=== PATIENT | male | born 1940 | race Caucasian/White ===

== ENCOUNTER 2017-02-25 13:33 | Observation (INO) | payer OTHER, BC ==
--- NOTE | 2017-02-25 13:38 | EDPHY ---
H & P HPI/ROS: CHIEF COMPLAINT: Allergic reaction HISTORY OF PRESENT ILLNESS: The patient is a 77 y/o male with a history of a traumatic brain injury SAH 2016 ) complaining of swollen lips and feeling like his throat is closing. For the past month he has had multiple similar reactions due to an unknown cause. However, today his reaction is much more severe. When the reaction initially began he had pain in his lips, but this has since gone away. However, he notices persistent lip swelling and tongue swelling, causing him to slur his speech. He does not feel short of breath but did feel as if his throat was swelling. He takes Aspirin, Lovastatin, and Nexium everyday. Denies history of CAD, shortness of breath, chest pain, or a skin rash. REVIEW OF SYSTEMS: A ten point review of systems was performed and is negative with the exception of the items mentioned in the HPI. Past medical history: Traumatic brain injury, subarachnoid hemorrhage 12/2015 Past surgical history: Denies Family history: Denies Social history: at bedside Lives in [place] [employer] Appearance: Alert. Blood pressure: 138/88 Vital signs reviewed. Room air pulse ox 93%. Eyes: Pupils equal and round, no conjunctival injection, no discharge. Anicteric. ENT, Mouth: Tongue and lip edema, no uvular edema, speech is thick due to edema , swallowing his secretions. No swelling of floor of mouth. Mucous membranes are moist. Neck: No lymphadenopathy, supple. Trachea midline. Respiratory: Lungs are clear to auscultation; no wheezes, rales, or rhonchi. No stridor. Cardiovascular: Regular rate and rhythm; no murmur, rub, or gallop. Gastrointestinal: Abdomen is soft and nontender, no masses or organomegaly, bowel sounds normal. Skin: Warm and dry, no rashes on exposed skin, normal color. Back: Nontender to palpation over the thoracolumbar spine. No CVAT. Extremities: No lower extremity edema, no calf tenderness or swelling. Neurological: Alert and oriented. Moving all four extremities easily and equally. Psychiatric: Normal affect. - Medical/Surgical History Hx Asthma: No Hx Chronic Respiratory Disease: No Hx Diabetes: No Hx Cardiac Disease: No Hx Renal Disease: No Hx Cirrhosis: No Hx Alcoholism: No Hx HIV/AIDS: No Hx Splenectomy or Spleen Trauma: No Other PMH: PMH: TBI - Social History Smoking Status: Never smoked Constitutional: Initial Vital Signs Temperature (C) 36.4 C 02/25/17 13:37 Heart Rate 76 02/25/17 13:37 Respiratory Rate 16 02/25/17 13:37 Blood Pressure 139/88 H 02/25/17 13:37 O2 Sat (%) 93 02/25/17 13:37 O2 Delivery Mode Room Air Allergies/Adverse Reactions: naproxen sodium [From Aleve] Allergy (Verified 01/01/16 20:17) Home Medications: Medication Instructions Recorded Esomeprazole Mag Trihydrate 40 mg PO DAILY 02/25/17 [Nexium] Lovastatin 40 mg PO HS 02/25/17 EPINEPHrine [Epipen 0.3 MG] 0.3 mg IM ONCE #2 syr 02/26/17 predniSONE 40 mg PO DAILY #6 tablet 02/26/17 Medical Decision Making ED Course/Re-evaluation: The patient is a 77 y/o male with a history of a traumatic brain injury presenting with tongue and lip edema of unknown etiology. His speech is thick due to the edema, but he is swallowing well and does not have uvular edema. Lungs are clear. He is not hypotensive. Patient was re-examined at 2:05 p.m.. He has received IM epinephrine, IV Benadryl, IV Solu-Medrol, IV Zantac, and albuterol nebulized treatment. Visibly , the edema seems to have subsided mildly. He continues with thickened speech. 1511: Reassessed patient, he still has oral edema and continues to have thickened speech. I also discussed the plan for admission; patient and his are comfortable with this plan. The etiology of his angioedema is unknown with hereditary angioedema, food or medication reaction being in the differential. 1545: Consulted with hospitalist service, Dr. Ashton accepts admission of this patient. Differential Diagnosis: I considered hereditary/idiopathic angioedema in this patient who has had recurrent oral swelling, worse over the past few months. There is no obvious food or other inciting agent but anaphylaxis, allergic reaction, and urticaria are all in the differential. - Data Points Medications Given: Discontinued Medications Albuterol (Proventil Neb) 3 ml IH EDNOW ONE Stop: 02/25/17 14:00 Last Admin: 02/25/17 14:00 Dose: 3 ml Cetirizine HCl (Zyrtec) 20 mg PO BID [facility] Stop: 08/24/17 20:59 Last Admin: 02/26/17 09:51 Dose: Not Given Diphenhydramine HCl (Benadryl Injection) 50 mg IVP EDNOW ONE Stop: 02/25/17 13:47 Last Admin: 02/25/17 13:50 Dose: 50 mg Enoxaparin Sodium (Lovenox) 40 mg SC DAILY SAGAR Stop: 08/25/17 08:59 Last Admin: 02/26/17 09:51 Dose: Not Given Epinephrine HCl (Epinephrine) 0.3 mg IM EDNOW ONE Stop: 02/25/17 13:47 Last Admin: 02/25/17 13:49 Dose: 0.3 mg Famotidine (Pepcid) 20 mg PO BID [facility] Stop: 08/25/17 09:29 Last Admin: 02/26/17 09:51 Dose: Not Given Sodium Chloride (Ns) 1,000 mls @ 0 mls/hr IV ONCE ONE PRN Reason: Wide Open Stop: 02/25/17 13:49 Last Admin: 02/25/17 13:50 Dose: 1,000 mls Famotidine/Sodium Chloride (Pepcid 20 Mg (Premix)) 50 mls @ 200 mls/hr IV Q12HRS [facility] Stop: 08/24/17 20:59 Last Admin: 02/26/17 09:52 Dose: Not Given Methylprednisolone Sodium Succinate (Solu-Medrol) 125 mg IVP EDNOW ONE Stop: 02/25/17 13:48 Last Admin: 02/25/17 13:49 Dose: 125 mg Prednisone (Prednisone) 40 mg PO DAILY [facility] Stop: 08/24/17 16:44 Last Admin: 02/26/17 13:13 Dose: 40 mg Ranitidine HCl (Zantac) 25 mg IVP EDNOW ONE Stop: 02/25/17 13:48 Last Admin: 02/25/17 13:49 Dose: 25 mg Departure - Departure Disposition: [facility] Acute Clinical Impression: Angio-edema Qualifiers: Encounter type: initial encounter Qualified Code(s): T78.3XXA - Angioneurotic edema, initial encounter Condition: Good Report Scribed for: Amanda Alvarado Report Scribed by: Wendy Babin Date of Report: 02/25/17 Time of Report: 14:11 Physician Review and Approval Statement: 02/25/17 13:38 Portions of this note were transcribed by the medical planner. I, Dr. Amanda Alvarado, personally performed the history, physical exam, and medical decision- making; and confirmed the accuracy of the information in the transcribed note.
[2017-02-25] MEDS ORDERED: methylPREDNISolone SOD SUCC 125 MG/2 ML VIAL IVP ONE (13:47)
[2017-02-25] MEDS ORDERED: RANITIDINE 50 MG/2 ML VIAL IVP ONE (13:47)
[2017-02-25] MEDS ORDERED: NS 1,000 ML IV ONE (13:48)
[2017-02-25] MEDS ORDERED: ALBUTEROL 3 ML DEYVIAL IH ONE (13:59)
[2017-02-25] MEDS ORDERED: RANITIDINE 50 MG/2 ML VIAL ONE (14:55)
[2017-02-25] MEDS ORDERED: methylPREDNISolone SOD SUCC 125 MG/2 ML VIAL ONE (14:55)
[2017-02-25] MEDS ORDERED: ALBUTEROL 3 ML DEYVIAL ONE (14:55)
[2017-02-25] MEDS ORDERED: ONDANSETRON DISINTEGRATING 4 MG TAB PO PRN (15:44)
[2017-02-25] MEDS ORDERED: ACETAMINOPHEN 325 MG TAB PO PRN (15:44)
[2017-02-25] MEDS ORDERED: ONDANSETRON 4 MG/2 ML VIAL IVP PRN (15:44)
[2017-02-25] MEDS ORDERED: NS 1,000 ML IV SCH (15:45)
--- NOTE | 2017-02-25 16:48 | PDGENHP ---
History and Physical - Chief Complaint Acute dysphonia - History of Present Illness Primary care provider: Dr. Derrek Kinney Primary neurologist: Dr. Ervin Rader Primary seed yeast operator: Dr. Urbina HPI: 77-year-old male presenting with acute dysphonia characterized as muffled , fixed speech with associated sensation of his throat closing, lips and tongue swelling, onset of symptoms at noon on the day of presentation. Duration has been persistent thereafter. The patient reports that his symptoms have been somewhat intermittent but of lesser severity over the past month, without any identifiable precipitant. They have been alleviated without any intervention. The day of this presentation, the patient ate cereal with half and half, coffee , apple crisp, and otherwise took his morning medications. Patient does believe that he has a dairy allergy, with symptoms of mild swelling and itching occasionally with dairy intake. That being said, the patient continues to consume dairy, and has not been pervasive his life. History Information - Allergies/Home Medication List Allergies/Adverse Reactions: naproxen sodium [From Aleve] Allergy (Verified 01/01/16 20:17) Home Medications: Cholecalciferol Vit D3 [Vitamin D3 (*)] 1,000 units PO DAILY 02/25/17 [Last Taken 02/25/17] Cyanocobalamin (Vitamin B-12) [B-12] 1,000 mcg PO DAILY 02/25/17 [Last Taken ] Esomeprazole Mag Trihydrate [Nexium] 40 mg PO DAILY 02/25/17 [Last Taken ] Herbals/Supplements -Info Only 1 ea PO DAILY 02/25/17 [Last Taken 02/25/17] Lovastatin 40 mg PO HS 02/25/17 [Last Taken 02/24/17] I have personally reviewed and updated: family history, medical history, social history, surgical history - Past Medical History Additional medical history: Field's esophagus diagnosed 1 year ago, 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 Subarachnoid hemorrhage in 2016 with residual symptoms including mild ataxia, (reviewed outside record including Lucy tilley reporting 22 sessions, patient w/ ongoing repositioning work) . BPPV - Surgical History Additional surgical history: EGD 1 year ago, no other head or neck surgeries - Family History Additional family history: No family history of angioedema, no family history of vague abdominal disorders - Social History Smoking Status: Never smoked Alcohol Use: None Drug Use: None Additional social history: Independent in ADLs Review of Systems Review of Systems: ROS: 10pt was reviewed & negative except for what was stated in HPI & below EENMT: Reports: mouth swelling, throat swelling, other (Dysphonia, thick speech) Physical Exam Physical Exam: Temp Pulse Resp BP Pulse Ox 37.0 C 90 25 H 126/78 H 92 02/25/17 16:11 02/25/17 16:11 02/25/17 16:11 02/25/17 16:11 02/25/17 16:11 Constitutional: no apparent distress, appears nourished, not in pain, uncomfortable Eyes: PERRL, anicteric sclera, EOMI Ears, Nose, Mouth, Throat: other (Edematous lips, very mildly edematous tongue, difficult to visualize tonsils, mild posterior pharynx edema but is tonsils are open) Cardiovascular: regular rate and rhythym, no murmur, rub, or gallop, No irregularly irregular, No tachycardia Respiratory: no respiratory distress, no rales or rhonchi, clear to auscultation , other (No upper airway stridor) Gastrointestinal: normoactive bowel sounds, soft, non-tender abdomen, no palpable masses Skin: no rashes or abrasions, No erythema Neurologic: AAOx3, sensation intact bilaterally, No weakness Psychiatric: interacting appropriately, not anxious, not encephalopathic, thought process linear Assessment & Plan Assessment: 77-year-old male presenting with acute angioedema Plan: 1. Angioedema. Acute, new problem this provider, further workup indicated. Potential precipitating causes include hypersensitivity to aspirin (allergic to naproxen with generalized edema as reaction) verses proton pump inhibitor verses dairy, less likely statin, less likely familial inherited disorder -most recent CT imaging from 02/26/2016 CT angiogram of the neck demonstrating mild atherosclerosis, no flow-limiting stenosis, no indication for further CT imaging at this time as he does not have evidence of airway compromise -check basic labs, C1 esterase deficiency, LEOLA -discussed with Dr. Amanda Alvarado, she reports to me that the patient has received epinephrine, Solu-Medrol, Benadryl, ranitidine, albuterol in the emergency department -given that this does appear to be true angioedema, will continue him on prednisone 40 and recommend 5 day taper -continue H2 rachel famotidine IV twice daily, adjust oral tomorrow -continue on antihistamine with high-dose cetirizine 20 mg twice daily, can be tapered to 10 mg twice daily and then once daily thereafter -no evidence of airway compromise, continue to monitor this high risk patient in the step-down unit -recommend outpatient f/u w/ Cafeteria Clerk 2. Field's esophagus. Patient chronically on PPI, can be a contributing cause of hypersensitivity reaction, recommend adjusting to H2 rachel -recommend ranitidine 150 twice daily at discharge outpatient follow-up with Gastroenterology provider Diet. Passed bedside swallow eval, regular diet, CARPET SEWER eval in a.m. for formal recommendations Prophylaxis. High risk patient, Lovenox 40 Code. Full Disposition. Anticipated discharge is , pending stabilization and reassessment of above.
[2017-02-25] MEDS: predniSONE 20 MG TAB PO SCH (16:49)
[2017-02-25 17:03] LABS: % IMMATURE GRANULYOCYTES 0.4 % (0.0-1.1); ABSOLUTE IMMATURE GRANULOCYTES 0.04 10^3/uL (0.00-0.10); ADD DIFF? NO; ADD MORPH? NO; ADD SCAN? NO; ATYPICAL LYMPHOCYTE FLAG 0 (0-99); FRAGMENT RBC FLAG 0 (0-99); HEMATOCRIT 45.6 % (40.0-51.0); HEMOGLOBIN 15.7 g/dL (13.7-17.5); LEFT SHIFT FLG 0 (0-99); LIPEMIA HEMOLYSIS FLAG 90 (0-99); MEAN CELL HEMOGLOBIN 29.8 pg (27.9-34.1); MEAN CELL HEMOGLOBIN CONCENTR. 34.4 g/dL (32.4-36.7); MEAN CELL VOLUME 86.7 fL (81.5-99.8); MEAN PLATELET VOLUME 9.5 fL (8.7-11.7); PLATELET CLUMPS FLAG 10 (0-99); PLATELET COUNT 217 10^3/uL (150-400); RED BLOOD CELL COUNT 5.26 10^6/uL (4.40-6.38); RED CELL DISTRIBUTION WIDTH 14.4 % (11.5-15.2)
[2017-02-25 17:21] LABS: ALANINE AMINOTRANSFERASE 43 IU/L (21-72); ALKALINE PHOSPHATASE 63 IU/L (38-126); ANION GAP 10 mEq/L (8-16); ASPARTATE AMINOTRANSFERASE 27 IU/L (17-59); BILIRUBIN,TOTAL 0.3 mg/dL (0.1-1.4); CALCIUM 9.2 mg/dL (8.5-10.4); CARBON DIOXIDE 19 mEq/l (22-31); CHLORIDE 109 mEq/L (97-110); GLOMERULAR FILTRATION RATE > 60; GLUCOSE 121 mg/dL (70-100); SODIUM 138 mEq/L (134-144); TOTAL PROTEIN 6.5 g/dL (6.3-8.2)
[2017-02-25] MEDS: FAMOTIDINE 20 MG/NACL 50 ML IV SCH (20:22)
[2017-02-25] MEDS: CETIRIZINE 10 MG TAB PO SCH (20:22)
[2017-02-26 04:51] LABS: ANION GAP 8 mEq/L (8-16); CALCIUM 8.7 mg/dL (8.5-10.4); CARBON DIOXIDE 21 mEq/l (22-31); CHLORIDE 111 mEq/L (97-110); CREATININE 0.9 mg/dL (0.7-1.3); GLOMERULAR FILTRATION RATE > 60; GLUCOSE 118 mg/dL (70-100); MAGNESIUM 1.7 mg/dL (1.6-2.3); POTASSIUM 4.2 mEq/L (3.5-5.2); SODIUM 140 mEq/L (134-144)
[2017-02-26 08:32] VITALS: BP 121/73; RESP 20; TEMP 97.8
[2017-02-26] MEDS ORDERED: ENOXAPARIN 40 MG/0.4 ML SYR SC SCH (09:00)
[2017-02-26] MEDS ORDERED: FAMOTIDINE 20 MG TAB PO SCH (09:30)
[2017-02-26] MEDS: predniSONE 20 MG TAB PO SCH ×2 (09:51→13:13)
[2017-02-26] MEDS: CETIRIZINE 10 MG TAB PO SCH (09:51)
[2017-02-26] MEDS: FAMOTIDINE 20 MG/NACL 50 ML IV SCH (09:52)
--- NOTE | 2017-02-26 11:38 | ASMTCMCOM ---
CM Note CM Note Notes: 77 year old male admitted for acute dysphonia. He ahs a hx of Field's esophagus, SAH and BPPV. patient to have a swallow eval before discharge. No discharge needs anticipated. Date Signed: 02/26/2017 11:37 AM Electronically Signed By:Lynne Hawley LCSW
[2017-02-26 12:57] VITALS: PULSE 82; O2SAT 94
--- NOTE | 2017-02-26 13:16 | HOSPPROG ---
Hospitalist Progress Note Assessment/Plan: 77 yo M w angioedema better home on steroids outpt allergy follow up epi pen, steroid taper, dairy elimination see dc summary Subjective: much better. no airway issues Objective: Vital Signs Temp Pulse Resp BP Pulse Ox 36.6 C 82 20 121/73 H 94 02/26/17 08:00 02/26/17 12:00 02/26/17 12:00 02/26/17 08:00 02/26/17 12:00 Laboratory Results 02/25/17 16:55 02/26/17 04:30 02/25/17 02/26/17 02/27/17 05:59 05:59 05:59 Intake Total 805 Balance 805 - Physical Exam Constitutional: no apparent distress, appears nourished Eyes: PERRL, anicteric sclera Ears, Nose, Mouth, Throat: moist mucous membranes, hearing normal Cardiovascular: regular rate and rhythym, no murmur, rub, or gallop Respiratory: no respiratory distress, no rales or rhonchi Gastrointestinal: normoactive bowel sounds, soft, non-tender abdomen Genitourinary: no bladder fullness, No boudreaux in urethra Skin: warm, normal color Musculoskeletal: full muscle strength Neurologic: AAOx3 ICD10 Worksheet Patient Problems: Problems Problem Status Onset Angio-edema Acute
--- NOTE | 2017-02-26 13:32 | GDS ---
[f rep st] DISCHARGE SUMMARY HOSPITAL COURSE: Please see admission history and physical by Dr. Ha Ashton. The patient presente d with lip swelling, mouth swelling and dysarthric speech concerning for angioedema. He had been hav ing more mild symptoms recently. There are no new medications. His only prescription medications ar e PPI which he has been about a year, as well as his statin. He takes evdo-twl-swrmisb B12 and vitam in D3 as well as probiotics. Otherwise no new medications or products in his life. He thinks that preeti wynn is getting some small reactions to dairy. He received the usual angioedema cocktail of H2 rachel, antihistamine, steroids with rapid improvement in symptoms. This morning his voice is at baseline. He is able to say words like stethoscope without difficulty. He is discharged home with 3 additiona l days of steroids without taper and an EpiPen, referral to Allergy and plan to discontinue on over-t he-counter medications and see an milk tester and eliminating dairy from his diet. /[id number]/MODL
--- NOTE | 2017-02-26 15:31 | ASDISCHSUM ---
Discharge Information Plan Status:Home with No Needs Medically Cleared to Leave:02/25/2017 Discharge Date:02/26/2017 02:01 PM CM D/C Disposition:Home, Routine, Self-Care ADT D/C Disposition:Home, Routine, Self-Care Projected Discharge Date:02/26/2017 04:00 PM Transportation at D/C:Family Discharge Delay Reason: Follow-Up Date:02/26/2017 04:00 PM Discharge Slot: Final Diagnosis:Hypersensitivity to aspirin Placement Information Patient Contact Information Contact Name:NAYA Relationship: Address:[address] City:[place] Alternate Phone: State/Zip Code:[place] [address] Email: Financial Information Financial Class: Primary Plan Desc:MEDICARE OUTPATIENT Primary Plan Number:[id number] Secondary Plan Desc: OUT OF STATE [facility] Secondary Plan Number:[id number] Assessment Information [facility] CM Progress Note CM Note CM Note Notes: 77 year old male admitted for acute dysphonia. He ahs a hx of Field's esophagus, SAH and BPPV. patient to have a swallow eval before discharge. No discharge needs anticipated. Date Signed: 02/26/2017 11:37 AM Electronically Signed By:Lynne Hawley LCSW Case Management Discharge Plan Note Case Management Discharge Discharge Order Complete? Answers: Yes Patient to Obtain Answers: via Family Medications Transportation Arranged Answers: Family/Friends Transport will Pick (Date 02/26/2017 04:00 AM & Time) RICARDOALA Complete Answers: No Notes: not needed Case Management Transport Answers: No Notes: Home with family Form Complete Faxed Final Orders Answers: No Notes: Going home Agency/Facility Transfer Answers: No Notes: Going home Report Printed & Faxed to Receiving Agency Family Notified Answers: Yes Discharge Comments Notes: Patient has been discharged. To follow up with Jack Euceda MD 3-5 days and Derrek Hernandez MD PCP. No other discharge needs. Date Signed: 02/26/2017 03:30 PM Electronically Signed By:Lynne Hawley LCSW Intervention Information
== END 2017-02-26 14:01 | disposition home or self-care (01) ==
LOC: F2N 16:10
PROVIDERS: ADMIT Internal Medicine; ATTEND Internal Medicine
DX: T78.3XXA Angioneurotic edema, initial encounter (principal); X58.XXXA Exposure to other specified factors, initial encounter; Z87.820 Personal history of traumatic brain injury; K22.70 Barrett's esophagus without dysplasia
CPT/HCPCS: 96361; 96372; 96374; 96375; 99285; G0378; J1200; J2780; J2930; 86161-90

== ENCOUNTER → 2017-12-05 | Outpatient (CLI) | payer OTHER, BC | LOC: BHFA 14:15 | PROVIDERS: ATTEND Internal Medicine Interventional Cardiology | DX: I25.10 Atherosclerotic heart disease of native coronary artery without angina pectoris (principal); E78.00 Pure hypercholesterolemia, unspecified ==

== ENCOUNTER 2018-06-28 17:05 | Observation (INO) | payer OTHER, BC ==
--- NOTE | 2018-06-28 18:19 | EDPHY ---
H & P Stated Complaint: amaurosis figox diagnosed by [facility], for precursor for stroke Time Seen by Provider: 06/28/18 18:08 HPI/ROS: CHIEF COMPLAINT: Transient blindness left eye HISTORY OF PRESENT ILLNESS: 78-year-old male presents with transient blindness in the left eye. 2 episodes of sudden onset blindness left eye, 1 lasting 30 sec and the other 15 sec. Only able to see a brownish color throughout his entire visual field. These episodes occurred 3-4 days ago. He saw his retinal specialist, who advised him to come to the ED for evaluation. Eye exam reportedly normal. He takes an aspirin daily. No speech changes, weakness or numbness. REVIEW OF SYSTEMS: complete 10 point ROS reviewed and is negative except for the noted elements in the HPI - Personal History Current Tetanus/Diphtheria Vaccine: Unsure Current Tetanus Diphtheria and Acellular Pertussis (TDAP): Unsure - Medical/Surgical History Hx Asthma: No Hx Chronic Respiratory Disease: No Hx Diabetes: No Hx Cardiac Disease: No Hx Renal Disease: No Hx Cirrhosis: No Hx Alcoholism: No Hx HIV/AIDS: No Hx Splenectomy or Spleen Trauma: No Other PMH: PMH: TBI - Social History Smoking Status: Never smoked Alcohol Use: Sober Drug Use: None - Physical Exam Exam: General Appearance: Alert, pleasant Eyes: Pupils equal and round, no conjunctival pallor or injection, EOMI ENT, Mouth: Mucous membranes moist Neck: Normal inspection Respiratory: Lungs are clear to auscultation Cardiovascular: Regular rate and rhythm, no murmur Gastrointestinal: Abdomen is soft and nontender Neurological: Alert, oriented x3, cranial nerves II through XII intact, motor 5 /5, sensory intact to light touch, normal gait Skin: Warm and dry Extremities: Normal inspection Psychiatric: Mood and affect normal Constitutional: Initial Vital Signs Temperature (C) 37 C 06/28/18 17:11 Heart Rate 73 06/28/18 17:11 Respiratory Rate 18 06/28/18 17:11 Blood Pressure 153/72 H 06/28/18 17:11 O2 Sat (%) 94 06/28/18 17:11 O2 Delivery Mode Room Air Allergies/Adverse Reactions: naproxen sodium [From Aleve] Allergy (Verified 01/01/16 20:17) Home Medications: Medication Instructions Recorded Esomeprazole Mag Trihydrate 40 mg PO DAILY 02/25/17 [Nexium] Aspirin EC [Aspirin EC 81 mg (*)] 81 mg PO DAILY 06/28/18 Lovastatin 20 mg PO DAILY 06/28/18 Medical Decision Making - Diagnostics Imaging Results: MRI brain: NAD Imaging: Discussed imaging studies w/ call or contact centre coach Radiologist ED Course/Re-evaluation: This pt presents with amaurosis fugax x 2, already took ASA 81mg today. EKG reveals NSR without ischemic changes. MRI brain reveals no evidence for CVA. Will admit for further TIA/CVA evaluation and neuro consultation. The hospitalist service was consulted for admission. Differential Diagnosis: includes though not limited to CVA, TIA, inflammatory disorder, dysrhythmia - Data Points Laboratory Results: Laboratory Results 06/28/18 18:35 06/28/18 18:35 Medications Given: Aspirin Buffered (Aspirin Ec) 81 mg PO DAILY21 [facility] Stop: 12/25/18 22:29 Last Admin: 06/28/18 22:47 Dose: 81 mg Clopidogrel Bisulfate (Plavix) 75 mg PO DAILY [facility] Stop: 12/26/18 10:44 Last Admin: 06/29/18 11:42 Dose: 75 mg Pantoprazole Sodium (Protonix) 40 mg PO DAILY [facility] Stop: 12/26/18 08:59 Last Admin: 06/29/18 10:39 Dose: Not Given Pravastatin Sodium (Pravachol) 20 mg PO DAILY [facility] Stop: 12/26/18 08:59 Last Admin: 06/29/18 10:40 Dose: 20 mg Discontinued Medications Sodium Chloride (Ns) 1,000 mls @ 0 mls/hr IV ONCALL ONE PRN Reason: TKO Stop: 06/29/18 10:58 Last Admin: 06/29/18 11:43 Dose: 1,000 mls Departure - Departure Disposition: [facility] Inpatient Acute Clinical Impression: Amaurosis fugax of left eye Condition: Fair
[2018-06-28 19:00] LABS: PLATELET COUNT 277 10^3/uL (150-400)
--- NOTE | 2018-06-28 21:50 | PDGENHP ---
History and Physical - Chief Complaint vision loss - History of Present Illness 78yo M with CAD (no prior intervention), HLD presents to ED at recommendation of ad compositor due to recent left eye vision loss. First episode occurred . Vision in left eye completely went black. It happened suddenly but was not like a curtain coming down over his eye. This lasted about 90 seconds and vision returned. Had similar episode on 06/22 except the vision in his left eye just went dark and fuzzy but didn't completely go away. This episode lasted about 30 seconds. He saw an flight operations engineer on 06/22 who was concerned and said he should see his home furnishings sales representative and set him up with the ophthalmology appointment today. He had a dilated retinal exam that was reportedly completely normal. He currently does not have any vision changes. He denies any prior history of TIA/ stroke or atrial arrhythmias. In the ED, he had a brain MRI that does not show any evidence of stroke. He is being admitted for further evaluation and management. Case discussed with ED physician Derrek Vang. History Information - Allergies/Home Medication List Allergies/Adverse Reactions: naproxen sodium [From Aleve] Allergy (Verified 01/01/16 20:17) Home Medications: Esomeprazole Mag Trihydrate [Nexium] 40 mg PO DAILY 02/25/17 [Last Taken ] Aspirin EC [Aspirin EC 81 mg (*)] 81 mg PO DAILY 06/28/18 [Last Taken 06/28/18] Lovastatin 20 mg PO DAILY 06/28/18 [Last Taken 06/28/18] I have personally reviewed and updated: family history, medical history, social history, surgical history - Past Medical History Additional medical history: Field's esophagus, severe concussion in 2016 (had some vision changes around this time but these resolved), CAD (no prior intervention, f/b Vinicius), HLD - Surgical History Additional surgical history: EGD - Family History Additional family history: No family history of CAD or CVA. - Social History Smoking Status: Never smoked Alcohol Use: Sober Drug Use: None Additional social history: Very active, play tennis several times a week for hours at a time. Review of Systems Review of Systems: ROS: 10pt was reviewed & negative except for what was stated in HPI & below Physical Exam Physical Exam: Temp Pulse Resp BP Pulse Ox 36.8 C 79 18 119/95 H 95 06/28/18 21:41 06/28/18 21:41 06/28/18 21:41 06/28/18 21:41 06/28/18 21:41 Constitutional: no apparent distress, appears nourished, not in pain Eyes: PERRL, anicteric sclera, EOMI Ears, Nose, Mouth, Throat: moist mucous membranes, hearing normal, ears appear normal, no oral mucosal ulcers Cardiovascular: regular rate and rhythym, no murmur, rub, or gallop, No edema Respiratory: no respiratory distress, no rales or rhonchi, clear to auscultation Gastrointestinal: normoactive bowel sounds, soft, non-tender abdomen, no palpable masses Genitourinary: no bladder fullness, no bladder tenderness Skin: warm, normal color, no rashes or abrasions, no fluctuance, no induration, No mottled Musculoskeletal: full muscle strength, no muscle tenderness, normal joint ROM, no joint effusions Neurologic: AAOx3, sensation intact bilaterally, CN II-XII Intact, other ( visual acuity normal), No weakness, No numbness, No pronator drift, No facial droop Psychiatric: interacting appropriately Lab Data & Imaging Review 06/28/18 18:35 06/28/18 18:35 WBC 6.59 10^3/uL (3.80-9.50) 06/28/18 18:35 RBC 4.99 10^6/uL (4.40-6.38) 06/28/18 18:35 Hgb 13.5 g/dL (13.7-17.5) L 06/28/18 18:35 Hct 43.1 % (40.0-51.0) 06/28/18 18:35 MCV 86.4 fL (81.5-99.8) 06/28/18 18:35 MCH 27.1 pg (27.9-34.1) L 06/28/18 18:35 MCHC 31.3 g/dL (32.4-36.7) L 06/28/18 18:35 RDW 15.8 % (11.5-15.2) H 06/28/18 18:35 Plt Count 277 10^3/uL (150-400) 06/28/18 18:35 MPV 9.8 fL (8.7-11.7) 06/28/18 18:35 Neut % (Auto) 83.3 % (39.3-74.2) H 06/28/18 18:35 Lymph % (Auto) 12.6 % (15.0-45.0) L 06/28/18 18:35 Jennings % (Auto) 3.6 % (4.5-13.0) L 06/28/18 18:35 Eos % (Auto) 0.0 % (0.6-7.6) L 06/28/18 18:35 Baso % (Auto) 0.2 % (0.3-1.7) L 06/28/18 18:35 Nucleat RBC Rel Count 0.0 % (0.0-0.2) 06/28/18 18:35 Absolute Neuts (auto) 5.49 10^3/uL (1.70-6.50) 06/28/18 18:35 Absolute Lymphs (auto) 0.83 10^3/uL (1.00-3.00) L 06/28/18 18:35 Absolute Monos (auto) 0.24 10^3/uL (0.30-0.80) L 06/28/18 18:35 Absolute Eos (auto) 0.00 10^3/uL (0.03-0.40) L 06/28/18 18:35 Absolute Basos (auto) 0.01 10^3/uL (0.02-0.10) L 06/28/18 18:35 Absolute Nucleated RBC 0.00 10^3/uL (0-0.01) 06/28/18 18:35 Immature Gran % 0.3 % (0.0-1.1) 06/28/18 18:35 Immature Gran # 0.02 10^3/uL (0.00-0.10) 06/28/18 18:35 Sodium 134 mEq/L (135-145) L 06/28/18 18:35 Potassium 4.7 mEq/L (3.5-5.2) 06/28/18 18:35 Chloride 103 mEq/L (97-110) 06/28/18 18:35 Carbon Dioxide 19 mEq/l (22-31) L 06/28/18 18:35 Anion Gap 12 mEq/L (6-14) 06/28/18 18:35 BUN 14 mg/dL (7-23) 06/28/18 18:35 Creatinine 0.9 mg/dL (0.7-1.3) 06/28/18 18:35 Estimated GFR > 60 06/28/18 18:35 Glucose 129 mg/dL (70-100) H 06/28/18 18:35 Calcium 9.2 mg/dL (8.5-10.4) 06/28/18 18:35 POC Troponin I 0.00 ng/mL (0.00-0.08) 06/28/18 18:51 Troponin I < 0.012 ng/mL (0.000-0.034) 06/28/18 18:35 Assessment & Plan Assessment: 78yo M with CAD (no prior intervention), HLD presents to ED at recommendation of ad compositor due to recent left eye vision loss. This has now resolved. Plan: #Acute monocular vision loss: Now resolved. MRI brain without CVA. Retinal exam reportedly normal. Suspect TIA given his vascular risk factors. TPA not indicated. - CTA head/neck normal - TTE ordered - Check lipid panel, keep on telemetry - PT/OT/GREEN BELT evaluation - Consult for neurology placed in [facility] - Will need escalation of anti-platelet therapy (on aspirin 81 prior to event ) - Consider outpatient cardiac event monitor (LINQ) if no arrhythmias detected here #CAD: On aspirin and statin. #Field's esophagus: Continue PPI. #H/o concussion VTE ppx: SCDs Code: full Diet: swallow eval then regular Dispo: Admit under observation
[2018-06-28] MEDS ORDERED: IOPAMIDOL (ISOVUE-370) 150 ML BTL IV ONE (21:59)
[2018-06-28] MEDS: ASPIRIN EC 81 MG TAB PO SCH (22:47)
--- NOTE | 2018-06-28 23:04 | CPEKG ---
Test Reason : OPEN Blood Pressure : / mmHG Vent. Rate : 069 BPM Atrial Rate : 069 BPM P-R Int : 134 ms QRS Dur : 089 ms QT Int : 426 ms P-R-T Axes : 008 -06 033 degrees QTc Int : 457 ms Sinus rhythm Confirmed by Cindy Benítez ([id number]) on 06/28/2018 11:04:15 PM Referred By: CINDY BENÍTEZ Confirmed By:Cindy Benítez
[2018-06-29 06:51] LABS: PLATELET COUNT 250 10^3/uL (150-400)
[2018-06-29] MEDS ORDERED: PRAVASTATIN SODIUM 20 MG TAB PO SCH (09:00)
[2018-06-29] MEDS: PANTOPRAZOLE SODIUM 40 MG TAB PO SCH (10:39)
[2018-06-29] MEDS: PRAVASTATIN SODIUM 10 MG TAB PO SCH (10:40)
--- NOTE | 2018-06-29 10:54 | HOSPPROG ---
Hospitalist Progress Note Assessment/Plan: 78 yo M w hyperlipidemia a/w transient monocular blindness, concerning for neurovascular event MRI, CTA of head and neck and telemetry all neg ldl at goal not hypertensive, does not have dm 1. add plavix 2. await echo 3. outpt heart monitor 4. consideration of TEE_ discussing w cardiology Subjective: case d/w ambar gonsalez, cardiology PA. sx resolved. no events on telemetry Objective: Vital Signs Temp Pulse Resp BP Pulse Ox 36.9 C 98 20 110/55 L 96 06/29/18 10:14 06/29/18 10:14 06/29/18 10:14 06/29/18 10:14 06/29/18 10:14 Laboratory Results 06/29/18 06:15 - Physical Exam Constitutional: no apparent distress, appears nourished Eyes: PERRL, anicteric sclera Ears, Nose, Mouth, Throat: moist mucous membranes, hearing normal Cardiovascular: regular rate and rhythym, no murmur, rub, or gallop Respiratory: no respiratory distress, no rales or rhonchi Gastrointestinal: normoactive bowel sounds, soft, non-tender abdomen Genitourinary: no bladder fullness, No boudreaux in urethra Skin: warm Musculoskeletal: full muscle strength Neurologic: AAOx3, sensation intact bilaterally, CN II-XII Intact, No weakness Psychiatric: interacting appropriately ICD10 Worksheet Patient Problems: Problems Problem Status Onset Angio-edema Acute
[2018-06-29] MEDS ORDERED: NS 1,000 ML IV ONE (10:57)
--- NOTE | 2018-06-29 11:03 | ECHO ---
[email or web address] [address] [address] Main: [phone] Echocardiography Examination Transthoracic Name: PAMELA APARICIO MR#: [id number] Study Date: 06/29/2018 Study Time: 09:50 AM Date of : 1940 Age: 78 year(s) Height: 170.2 cm (67 in.) Weight: 73.48 kg (162 lb.) BSA: 1.85 m2 Gender: Male Examination: Echo with Agitated Saline Contrast: Image Quality: Adequate Rhythm: Heart Rate: BP: 101 mmHg/50 mmHg Indication: Ischemic Stroke Procedure Staff Referring Physician: Loan Servicing Officer: Isabelle Fuentes [facility] Reading Physician: Jasmeet Wallace MD Requesting Provider: Ordering Physician: Luiz Aguilar Indication: Ischemic Stroke Measurements Chambers AV/MV Label Value Normal Value Label Value Normal Value EF lower range (%) 60 % AV PGmax 11 mmHg EF upper range (%) 65 % AV PGmean 6 mmHg IVSd, 2D 1.1 cm (0.6cm - 1.1cm) AV Vmax 1.67 m/s LVDd, 2D 4.4 cm (4.2cm - 5.9cm) CARLA (continuity eq. 2 cm2 LVDs, 2D 2.4 cm (2.1cm - 4cm) Vmax) LVEF, 2D 78 % (54% - 74%) CARLA D (continuity eq. 1.6 cm2 LVEF, BP 64 % (55% - 70%) VTI) LVOT PGmax 7 mmHg MV A Vmax 0.53 m/s LVOT PGmean 4 mmHg MV DT 225 ms LVOT Vmax 1.29 m/s (0.7m/s - 1.1m/s) MV E' lateral 0.15 m/s LVOT Vmean 0.9 m/s MV E' mean 0.12 m/s LVOTd 1.8 cm (1.9cm - 2.1cm) MV E' septal 0.09 m/s LVPWd, 2D 1 cm (0.6cm - 1cm) MV E Vmax 0.7 m/s RVDd, 2D 2.9 cm (1.9cm - 3.8cm) MV E/A 1.32 LA Volume, BP 44 ml (18ml - 58ml) MV E/E' lateral 4.6 LADs, 2D 3.3 cm (3cm - 4cm) MV E/E' mean 5.83 LAESV index, BP 23.8 ml/m2 MV E/E' septal 8.1 (0.45 - 1.25) RA Area 17.9 cm2 MV PHT 0.06 s Additional Vessels MV PHT 64 ms MVA PHT 3.4 cm2 Patient: PAMELA APARICIO Study Date: 06/29/2018 Page 1 of 3 09:50 AM Label Value Normal Value TV/PV AoAsc 3 cm Label Value Normal Value AoRoot, 2D 3 cm (1.4cm - 2.6cm) RA Pressure 5 mmHg RVSP 38 mmHg TR Pmax 33 mmHg TR Vmax 2.86 m/s PV PGmax 9 mmHg PV Vmax, Caliper 1.53 m/s (0.6m/s - 0.9m/s) Conclusions Left Ventricle: EF range is estimated at 60 % - 65 %. IAS: An agitated saline study was performed and was negative for intracardiac shunting. Aortic Valve: Aortic leaflets exhibit moderate calcification. Tricuspid Valve: Mild tricuspid regurgitation. Right Ventricular systolic pressure is measured at 38 mmHg. Findings Left Ventricle: Left ventricle is normal in size. Normal global systolic left ventricular function. The ejection fraction, measured by Simpsons method, is 64 %. EF range is estimated at 60 % - 65 %. There are no regional wall motion abnormalities. Left ventricular diastolic function parameters are normal. No LV hypertrophy. Right Ventricle: Normal size right ventricle. Right ventricular systolic function is normal. Left Atrium: The left atrium is normal in size. IAS: An agitated saline study was performed and was negative for intracardiac shunting. Mitral Valve: Mitral valve appears structurally normal. Mild mitral regurgitation. No mitral valve stenosis. Aortic Valve: No significant aortic valve regurgitation. There is no aortic stenosis. Aortic leaflets exhibit moderate calcification. Tricuspid Valve: Tricuspid valve leaflets are structurally normal. Mild tricuspid regurgitation. No tricuspid valve stenosis. Right Ventricular systolic pressure is measured at 38 mmHg. Pulmonary artery pressure slightly increased. Pulmonic Valve: Pulmonic leaflets are structurally normal. Trivial pulmonic valve regurgitation is present. Aorta: The aortic root size in 2D measures 3.0 cm. The ascending aorta measures 3.0 cm. Aorta Measurements AoRoot, 2D is 3.0 cm. Exam Details Procedure Ordered: Echo with Agitated Saline Procedure Status: Routine study Patient: PAMELA APARICIO Study Date: 06/29/2018 Page 2 of 3 09:50 AM Image Quality: Adequate Facility Location: Cardiac Echo 1 (No Signature Object) Patient: PAMELA APARICIO Study Date: 06/29/2018 Page 3 of 3 09:50 AM [id number]
--- NOTE | 2018-06-29 11:10 | NEUROPROG ---
Assessment: [id number] - Neurology Consult: - CC: Vision Loss - HPI: 06/29/18: Pt had two episodes of transient left eye vision loss that occurred on 06/21/18 and again on 06/22/18. Both episodes lasted 30-90 seconds. He saw an opthamologist who examined his eyes and did not find any problems. Pt was told to come to the hospital for admission for stroke evaluation so was admitted on . Brain MRI wo and head/neck CTA both normal. LDL 63L. Pt had been on an aspirin 81 mg qd prior to events. His neurologic exam was normal. Symptoms concerning for possible embolism to ophthalmologic artery so will recommend changing aspirin 81 mg qd to plavix 75 mg qd. Will recommend LINQ monitor for any paroxysmal afib. Pt can f/u in neurology clinic 1-4 weeks after hospital discharge. - PMHx: Barrets esophagus, concussion, CAD, HLD - SHx: no tobacco FHx: no CAD/CVA - ROS: Pt denied acute fever, total vision loss, active severe chest pain, respiratory failure, total body severe rash, total bowel/bladder incontinence, psychosis, active seizures, or active bleeding - O: VS reviewed General: Alert Eyes: Fundoscopic exam not able to visualize optic disks CV: Heart RRR, no murmur, no carotid bruit Lungs: Clear to auscultation bilaterally, no rhonchi or rales Neuro: - Mental: . Oriented x person/place/date . concentration appears normal . speech fluency/comprehension normal . memory appears normal . fund of knowledge appear intact - Cranial Nerves: . II: PERRL, VFFTC . III/IV/: EOMI, no nystagmus, normal smooth pursuits, no Ptosis . V: facial sensation intact to LT . VII: face symmetric to eye closure and smile . VIII: hearing intact to conversation . IX/X: uvula raises symmetrically . XI: SCM 5/5 B/L strength . XII: tongue protrudes midline w/nl strength - Motor: . Tone: normal tone in all 4 extremity . Strength: no pronator drift, strength 5/5 throughout (B/L delt, bic, tri, hand automation specialist, hf/he, df/pf) - Reflexes: B/L bic/BR/patella 2/4 - Sensory: all 4 extremity intact to light touch - Coord: mtzcus-uq-ttiz wnl, SID wnl, bcfv-in-avqm wnl - Gait: deferred - Labs: 06/29/18- CBC Hct 37.6L, LDL 63L - Rads: 06/28/18- Head/neck CTA: no significant vessel abnl, no hemodynamically significant carotid stenosis 06/28/18- Brain MRI wo: normal (I personally visualized the images on 06/29/18) 06/28/18- TTE: no cardiac thrombus noted - Assessment: 1. Transient left eye vision loss on 06/21/18 and 06/22/18: Concern for possible embolism to ophthalmologic artery versus cryptogenic cause or possibly migraine variant. Saw optho in June 2018 and no cause found. - Plan: - Change aspirin to plavix 75 mg qd for stroke prevention (events occurred on aspirin) - Continue home dose of statin - I recommend LINQ monitor - F/U in neurology clinic in 1-4 weeks after discharge - Work with PCM to ensure blood pressure < 140/90, H1AC < 7.0, and LDL < 70 (63) Objective: Vital Signs Temp Pulse Resp BP Pulse Ox 36.9 C 98 20 110/55 L 96 06/29/18 10:14 06/29/18 10:14 06/29/18 10:14 06/29/18 10:14 06/29/18 10:14 Laboratory Results 06/29/18 06:15 Allergies/Adverse Reactions: naproxen sodium [From Aleve] Allergy (Verified 01/01/16 20:17)
[2018-06-29] MEDS: CLOPIDOGREL BISULFATE 75 MG TAB PO SCH (11:42)
--- NOTE | 2018-06-29 15:54 | PDHPUP ---
History & Physical Update H&P update statement: This history and physical update is based on an assessment of the patient which was completed after admission or registration (within 24 hours), but prior to the surgery/procedure. H&P update: H&P reviewed & patient examined, no change in patient's condition since H&P completed (okay, consented and agrees with TAL with IV sedation.)
--- NOTE | 2018-06-29 15:55 | PDPROPOC ---
Sedation Plan of Care Sedation Plan of Care: mental status noted, patient educated of risks, benefits , alternatives, patient can tolerate sedation ASA Classification: ASA 2 Planned drugs: other Mallampati Score: Class 2 Mallampati Reference Image: Patient passed 3-3-2 rule?: Yes
[2018-06-29] MEDS ORDERED: LIDOCAINE 2% 100 MG/5 ML SYR ONE (15:56)
[2018-06-29] MEDS ORDERED: PROPOFOL/EMULSION 500 MG/50 ML BOTTLE IV ONE (15:56)
--- NOTE | 2018-06-29 16:26 | SOAPPROG ---
YOUSIF Progress Note Assessment/Plan: Assessment: Timeline: I went to ER and meet patient around noon to introduce myself and explain TAL procedure and why doing and risks and benefits including risk of tooth breaking and rare risk of esophageal injury. He has history of Field's esophagitis but no esophageal strictures or trouble swallowing. He agreed to procedure and schedule for 4pm after 7hrs of NPO 4pm-4:25pm: TAL performed with Anesthesia sedation. Mild to moderatelyl difficult to get TAL probe into esophagus. Never really good TAL images. Findings show normal LVEF with no obvious clot in LA or LV. Aortic valve is moderate calcified with no vegetations or . No vegetations on MV. Could not see LA appendage. Hemodynamically stable thru TAL. PLAN: 1)admit to PCU bed with IV fluids and make sure no esophageal injury. 2)continue current meds. 06/29/18 16:21 Objective: Vital Signs Temp Pulse Resp BP Pulse Ox 36.9 C 78 20 121/71 H 97 06/29/18 14:00 06/29/18 14:00 06/29/18 14:00 06/29/18 14:00 06/29/18 14:00 Laboratory Results 06/29/18 06:15 ICD10 Worksheet Patient Problems: Problems Problem Status Onset Angio-edema Acute
[2018-06-29] MEDS ORDERED: NALOXONE HCL 0.4 MG/ML INJ IVP PRN (16:30)
[2018-06-29] MEDS ORDERED: ONDANSETRON 4 MG/2 ML VIAL IVP PRN (16:30)
[2018-06-29] MEDS ORDERED: ALBUTEROL 3 ML DEYVIAL IH PRN (16:30)
--- NOTE | 2018-06-29 16:30 | POSTANESTH ---
Post Anesthetic Evaluation Cardiovascular Status: Similar to Pre-Op Cond Respiratory Status: Similar to Pre-op Cond. Level of Consciousness/Mental Status: Mildly Sleepy, Arousable Pain Control: Adequate, Prn Tx Ordered Nausea/Vomiting Control: Adequate, Prn Tx Ordered Complications Possibly Related to Anesthesia: None Noted
--- NOTE | 2018-06-29 16:30 | PDANEPAE ---
ANE Past Medical History - Pulmonary History Hx Oxygen in Use at Home: No Hx Sleep Apnea: No - Endocrine History Hx Diabetes: No ANE Review of Systems Review of Systems: ANE Patient History - Allergies Allergies/Adverse Reactions: naproxen sodium [From Aleve] Allergy (Verified 01/01/16 20:17) - Home Medications Home Medications: Esomeprazole Mag Trihydrate [Nexium] 40 mg PO DAILY 02/25/17 [Last Taken ] Aspirin EC [Aspirin EC 81 mg (*)] 81 mg PO DAILY 06/28/18 [Last Taken 06/28/18] Lovastatin 20 mg PO DAILY 06/28/18 [Last Taken 06/28/18] - Smoking Hx Smoking Status: Never smoked - Alcohol Use Alcohol Use: Sober ANE Labs/Vital Signs - Labs Result Diagrams: 06/29/18 06:15 06/28/18 18:35 - Vital Signs Blood Pressure: 121/71 Heart Rate: 78 Respiratory Rate: 20 O2 Sat (%): 97 Height: 170.18 cm Weight: 73.482 kg ANE Physical Exam - Airway Neck exam: FROM Mallampati Score: Class 2 Mouth exam: normal dental/mouth exam, dentures - Pulmonary Pulmonary: no respiratory distress - Cardiovascular Cardiovascular: regular rate and rhythym - ASA Status ASA Status: II ANE Anesthesia Plan Total IV Anesthesia: Yes
--- NOTE | 2018-06-29 16:40 | ECHO ---
[email or web address] [place] [id number] Main: [phone] Echocardiography Examination Transesophageal Name: PAMELA APARICIO MR#: [id number] Study Date: 06/29/2018 Study Time: 03:27 PM Date of : 1940 Age: 78 year(s) Height: 170.2 cm (67 in.) Weight: 73.48 kg (162 lb.) BSA: 1.85 m2 Gender: Male Examination: TAL Contrast: Image Quality: Adequate Rhythm: Heart Rate: BP: / Indication: amaurosis fugax Procedure Staff Referring Physician: Delivery Person: Isabelle Fuentes CHARLY Reading Physician: Liang Dan MD Requesting Provider: Indication: amaurosis fugax Acute complication: None Measurements Additional Vessels Label Value Normal Value AoDesc 3 cm Conclusions Left Ventricle: CONCLUSIONS:1)Technically difficult TAL with mild to moderately difficulty inserting TAL probe into esophagus.2)Normal LV systolic function with an estimated LVEF 55%.3)No clots seen in LV or LA.4)Mild to moderate aortic valve sclerosis without or AI.5)Could not visulalize LA appendage.see seperate fully dictated TAL report. Findings Technically difficult TAL imaging. Left Ventricle: CONCLUSIONS: 1)Technically difficult TAL with mild to moderately difficulty inserting TAL probe into esophagus. 2)Normal LV systolic function with an estimated LVEF 55%. 3)No clots seen in LV or LA. 4)Mild to moderate aortic valve sclerosis without or AI. 5)Could not visulalize LA appendage. Patient: PAMELA APARICIO Study Date: 06/29/2018 Page 1 of 2 03:27 PM see seperate fully dictated TAL report. IAS: Normal appearing atrial septum. Aortic Valve: Aortic leaflets are structurally normal. Aortic leaflets exhibit moderate calcification. Aorta: The descending aorta measures 3.0 cm. Exam Details Procedure Ordered: TAL Procedure Status: Routine study Image Quality: Adequate Consent: Risks, alternatives of procedure explained to patient, informed consent obtained Probe Insertion: Attending wood boat builder supervisor Facility Location: Cardiac Echo 1 (No Signature Object) Patient: PAMELA APARICIO Study Date: 06/29/2018 Page 2 of 2 03:27 PM [id number]
--- NOTE | 2018-06-29 17:33 | CPR ---
[f rep st] NONINVASIVE CARDIAC PROCEDURE REPORT DATE OF PROCEDURE: 06/29/2018 REPORT TITLE: TRANSESOPHAGEAL ECHO NOTE INDICATIONS: TIA with amaurosis fugax. Evaluate for cardiac clot and better definition of the abnor mal aortic valve seen on transthoracic echo. CONSENT: Signed. Risks, benefits, and alternatives discussed with the patient, including chipping a tooth and esophageal perforation. He accepts the risks and wishes to proceed. MEDICATIONS USED: Propofol 150 mg IV per Anesthesia Service. TECHNICAL DIFFICULTY: Favy-ji-xeupgpyrcu difficult insertion of the transesophageal echo probe into his proximal esophagus. DESCRIPTION OF PROCEDURE: The patient was in the CVC procedure unit. After informed consent and a t sukhdev-out, the patient was given sedation. He fell asleep easily. A transesophageal echo probe was in serted into his posterior oropharynx. There was lupu-fw-kygcffxk, but eventually was able to get int o the proximal esophagus. The overall contact with the esophagus and reliable echo images was interm ittent despite multiple levels in the esophagus from 20 cm down to 40 cm and omni plane rotation. At one point in the procedure, the transesophageal echo probe was removed and then reinserted easily th at time. Interestingly, his heart images were very cephalad with images starting to be obtained at 2 0 to 22 cm. Overall, the images were limited. At the end of the case, the transesophageal probe was removed. The patient was hemodynamically stable throughout the procedure. FINDINGS: 1. The left ventricle was visualized and appears to be normal in size and systolic function with no obvious left ventricle thrombus. 2. The left atrium was visualized and had no obvious clot or thrombus. 3. The mitral valve was visualized and had no obvious vegetation or clot. 4. The aortic valve was aijd-iz-vinwfbkmam calcified with aortic valve sclerosis, but no obvious aor tic stenosis or insufficiency. 5. The tricuspid and pulmonic valve were not well visualized. 6. The proximal thoracic aorta was visualized and measured 3.0 cm with no dissection flap. There wa s a mild amount of atheroma noted in the vessel wall. 7. The left atrial appendage could not be visualized. COMPLICATIONS: None. The patient awoke from sedation and reports no pain, including in his posterio r oropharynx or in his throat or chest. PLAN: 1. We will keep the patient overnight in the telemetry bed. 2. He needs some IV fluid as he has been n.p.o. for a while and is slightly dehydrated. 3. I do not think there is an esophageal perforation or significant injury, but would like to watch him closely for the next 12 hours to make sure he has no esophageal pain or posterior chest pain or f dina to suggest esophageal damage. /[id number]/MODL
[2018-06-29] MEDS: NS 1,000 ML IV SCH (17:45)
[2018-06-30] MEDS: NS 1,000 ML IV SCH (02:30)
[2018-06-30 05:27] LABS: INR 1.08 (0.83-1.16); PROTIME(PATIENT) 13.6 SEC (12.0-15.0)
--- NOTE | 2018-06-30 08:59 | SOAPPROG ---
SOAP Progress Note Assessment/Plan: Assessment: 78 y/o man with hyperlipidemia and GERD and previous EBCT showing coronary calcification with episode of amaurosis fugax in [place], [place] s/p mild to moderately complicated TAL yesterday. He is doing well mild very minimal scratchiness in posterior oropharynx with no pain swallowing or CP or posterior back pain or fevers. No more neurological symptoms. Denies CP, LUQUE, palpitations or dizziness. REC: 1)No change in current meds. Would change ASA to Plavix fpc as done during this hospitalization. 2)okay to discharge home today. 3)will set up treadmill stress test and 30 day even monitor as out-pt in coming week 4)f/u [facility] in five weeks with ecg 5)call if fevers or painful swallowing although doubt any esophageal tear or perforation. Thanks. 06/30/18 08:52 Subjective: feels okay. Wants to go home. Ate last night and this AM with mild scratchiness in posterior oropharynx only. Denies CP, fevers, cough, shortness of breath or PND or palpitations. Objective: Vital Signs Temp Pulse Resp BP Pulse Ox 36.5 C 63 21 H 106/66 87 L 06/30/18 08:00 06/30/18 08:00 06/30/18 08:00 06/30/18 08:00 06/30/18 08:00 Laboratory Results 06/30/18 04:33 06/30/18 04:33 06/29/18 06/30/18 07/01/18 05:59 05:59 05:59 Intake Total 750 1691 Balance 750 1691 PT 13.6 SEC (12.0-15.0) 06/30/18 04:33 INR 1.08 (0.83-1.16) 06/30/18 04:33 Physical Exam - Physical Exam General Appearance: alert EENT: normal ENT inspection (palpatation of neck no soreness or mass or lymph nodes. Visualization of posterior oropharynx normal.) Neck: non-tender Respiratory: lungs clear Cardiac/Chest: regular rate, rhythm, No gallop, No JVD, No systolic murmur Peripheral Pulses: 2+: carotid (R), carotid (L), femoral (R), femoral (L), dorsalis-pedis (R), dorsalis-pedis (L) Abdomen: non-tender, No guarding, No rebound, No ascites Skin: warm/dry Extremities: No pedal edema Neuro/Psych: oriented x 3 ICD10 Worksheet Patient Problems: Problems Problem Status Onset Amaurosis fugax of left eye Acute Angio-edema Acute
[2018-06-30] MEDS: PANTOPRAZOLE SODIUM 40 MG TAB PO SCH (09:52)
[2018-06-30] MEDS: CLOPIDOGREL BISULFATE 75 MG TAB PO SCH (09:52)
[2018-06-30] MEDS: PRAVASTATIN SODIUM 10 MG TAB PO SCH (09:53)
--- NOTE | 2018-06-30 10:19 | ASMTCMCOM ---
CM Note CM Note Notes: Patient admitted after opthamologist referred him to ED for transient loss of vision. Both Cardiology and Neurology have seen him after this presumed TIA. He will see both specialities as an outpatient. He is normally healthy, independent, lives w . PT/OT/[facility]OF[facility]IAL PROSTHODONTIST have all cleared for home. No d/c needs from Case Management Current CM Discharge plan: independent Date Signed: 06/30/2018 10:18 AM Electronically Signed By:Viridiana Esteban RN
[2018-06-30 11:32] VITALS: BP 115/77
--- NOTE | 2018-06-30 12:49 | ASMTLACE ---
LACE Length of stay for Answers: 2 days current admission Acuity / Level of Answers: No Care: Did the patient have an inpatient admission? Comorbidities - select Answers: Cerebrovascular disease all that apply (CVA, TIA, aneurysms, vasc ular dementia) Coronary Artery Disease # of Emergency department Answers: 1-2 visits in the last 6 months Score: 6 Date Signed: 06/30/2018 12:48 PM Electronically Signed By:Viridiana Esteban RN
--- NOTE | 2018-06-30 16:50 | GDS ---
[f rep st] DISCHARGE SUMMARY DISCHARGE DIAGNOSIS: Transient monocular blindness. HISTORY OF PRESENT ILLNESS: Mr. Carrillo is a pleasant 78-year-old gentleman with a past medical histo ry of known coronary artery disease by heart scanning with an estimated calcium score in the 7000s, b ut with nonobstructive coronary artery disease by cardiac catheterization, who presented to [facility] on 06/28/2018, after having transient vision loss on more than 1 occasion of his le ft eye. He underwent workup including a brain MRI, as well as CT angiography of the head and neck, w hich did not show any evidence of a stroke. He also had a transesophageal echocardiogram performed i n addition to a transthoracic. On telemetry monitoring, there was no evidence of atrial fibrillation . Cardiology was involved in this case and will be sending him home on a monitor for more prolonged cardiac monitoring to look for atrial fibrillation. Neurology was consulted as well during his cours e he in the hospital, and it was recommended to replace aspirin with Plavix. [facility]up visit [facility] was recommended as well. The patient's LDL cholesterol was measured and it was at 63 with the current dosing of lovastatin. HOSPITAL COURSE BY PROBLEM: 1. Transient monocular blindness: Suspecting secondary to atherosclerotic emboli in light of strong history of arterial disease. Fortunately, his symptoms did resolve. No arrhythmias noted. But mildred qureshi will have prolonged cardiac monitoring for additional evaluation. He will stop aspirin and repl ra this with Plavix. A prescription has been sent to his pharmacy. 2. History of coronary artery disease: Nonobstructive. Diagnosed by elevated calcium score and hea rt scanning. Currently asymptomatic. Continue medical management and ongoing cardiology followup. 3. Hyperlipidemia: Continue with current lovastatin, as his LDL does appear to be at goal. 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 DISPOSITION: Patient appears stable for transfer from the hospital to home with the above-listed [facility] nges. DISCHARGE PHYSICAL EXAMINATION: VITAL SIGNS: Temperature 36.6, blood pressure 115/77, heart rate 65 , respirations 14, saturating 95% on room air. GENERAL: Patient appears comfortable he is awake, al ert, conversant, no acute distress. HEART: Regular. No murmurs appreciated. LUNGS: Normal respir atory effort. Clear to auscultation. ABDOMEN: Soft, nontender, nondistended. Normal bowel sounds. : No Mchugh catheter in place. EXTREMITIES: No significant edema. NEUROLOGIC: Cranial nerves appeared intact grossly. No weakness of extremities appreciated. NOTABLE STUDIES: Brain MRI: Normal MRI of the brain without contrast. CT angiography of the head and neck: Normal CT angiography of the head and neck, spinal stenosis at C5-C6. Echocardiogram: Left ventricle normal size with normal function. EF estimated at 64%. No wall yousif on abnormalities. Transesophageal echocardiogram: Technically difficult with no clot seen in the left ventricle. Coul d not visualize left atrial appendage. White blood cell count 4, hemoglobin 11, platelets 239. INR 1.0. A1c 6.0. LDL 63. DISCHARGE MEDICATIONS: Plavix 75 mg daily. Lovastatin 20 mg daily. Nexium 40 mg daily. DISCHARGE INSTRUCTIONS: I have recommended a followup visit with his primary care provider, as well as Cardiology once his outpatient monitoring has been completed for review. 40 minutes of time dedicated to discharge efforts. /[id number]/MODL
== END 2018-06-30 14:00 | disposition home or self-care (01) ==
LOC: F3N 06-29 17:59
PROVIDERS: ADMIT Internal Medicine; ATTEND Internal Medicine
PROC: B245ZZ4 Ultrasonography of Left Heart, Transesophageal (ICD-10-PCS; principal; 2018-06-28)
DX: H53.122 Transient visual loss, left eye (principal); I25.10 Atherosclerotic heart disease of native coronary artery without angina pectoris; E78.5 Hyperlipidemia, unspecified; K22.70 Barrett's esophagus without dysplasia; M48.02 Spinal stenosis, cervical region; K21.9 Gastro-esophageal reflux disease without esophagitis
CPT/HCPCS: 70496; 70498; 70551; 92523; 93005; 93306; 93312; 96360; 97161; 97165; 99285; G0378; J2001; J2704; Q9967; 84484-ER

== ENCOUNTER → 2018-08-10 | Outpatient (CLI) | payer OTHER, BC | LOC: BHFA 09:00 | PROVIDERS: ATTEND Internal Medicine Cardiovascular Disease | DX: I25.10 Atherosclerotic heart disease of native coronary artery without angina pectoris (principal); G45.9 Transient cerebral ischemic attack, unspecified; E78.5 Hyperlipidemia, unspecified ==